=== PATIENT | male | born 1980 | race Two or more races ===

== ENCOUNTER 2022-08-10 06:36 | Emergency (ER) | payer MEDICAID ==
[~2022-08-10] VITALS: Ht 182.9 cm; Wt 91.4 kg
[2022-08-10 07:54] VITALS: BP 120/68
[2022-08-10] MEDS ORDERED: HYDROCODONE/ACETAMINOPHEN 5-325 MG TABLET PO ONE (08:00)
== END 2022-08-10 08:15 | disposition home or self-care (01) ==
LOC: EMS 06:38
DX: K40.90 Unilateral inguinal hernia, without obstruction or gangrene, not specified as recurrent (principal); F17.210 Nicotine dependence, cigarettes, uncomplicated
CPT/HCPCS: 99283